=== PATIENT | male | born 1965 | race Caucasian/White ===

== ENCOUNTER → 2021-01-08 | Outpatient (CLI) | payer BC | LOC: ECHO 08:43 | DX: I48.0 Paroxysmal atrial fibrillation (principal); I51.7 Cardiomegaly; R93.1 Abnormal findings on diagnostic imaging of heart and coronary circulation | CPT/HCPCS: ECHO; 93306 ==

== ENCOUNTER → 2021-01-30 | Outpatient (CLI) | payer BC | LOC: RAD 12:29 | DX: R07.9 Chest pain, unspecified (principal) | CPT/HCPCS: 71046 ==

== ENCOUNTER → 2021-02-11 | Outpatient (CLI) | payer BC | LOC: HEART 5 08:40 | DX: R00.0 Tachycardia, unspecified (principal); R00.2 Palpitations ==

== ENCOUNTER → 2021-02-14 | Outpatient (CLI) | payer BC | LOC: HEART 5 07:42 | DX: R07.9 Chest pain, unspecified (principal); R55 Syncope and collapse | CPT/HCPCS: 78452; A9502 ==